=== PATIENT | female | born 1975 | race Caucasian/White ===

== ENCOUNTER 2021-02-19 07:29 | Emergency (ER) | payer OTHER ==
[~2021-02-19] VITALS: Ht 165.1 cm; Wt 89.8 kg
--- NOTE | ~2021-02-19 | EMS ---
[facility] [address] [place] [address] EMS Patient Care Report Name: AHSAN JUAREZ Room #: DEP BRIEN Gaviria#: [id number] Admission: 02/19/21 Attend Phys: Discharge: 02/19/21 Date of : [birth year] Report #: [id number] THIS REPORT FOR: //name// Report Transmitted: 02/20/2021 09:37 EMS Care Summary [place], [place]/[facility] Incident [id number] @ 02/19/2021 06:54 Incident Location [address] [place] [address] Patient AHSAN JUAREZ Female, 45 Years 1975 Patient Address [address] [place] [address] Patient History Seizures, Patient Allergies No known allergies, Patient Medications Levetiracetam, Chief Complaint ALOC Disposition Transported No Lights/[place] Dispatch Reason Sick Person Transported To [facility] Narrative Dispatched to an apartment community in regards to a seizure. Upon arrival, I saw patient laying supine in bed. Initial assessment revealed that patient was [facility] [address] [place] [address] EMS Patient Care Report Name: AHSAN JUAREZ Room #: DEP [place]#: [id number] Admission: 02/19/21 Attend Phys: Discharge: 02/19/21 Date of : 79 Report #: [id number] GCS14 and did not appear to be in respiratory distress. Patient's chief complaint was ALOC. Bystander stated that he witnessed the patient have a 6 minute seizure. Bystander also stated that patient has a history of seizures. Physical assessment revealed that patient was pink warm and dry. Patient was assisted to our cot outside the apartment. Patient was seated on the cot , secured and lifted into the ambulance. Treatment rendered was obtaining a complete set of baseline vital signs, including a blood glucose reading. Patient was transported to [facility] and radio report was given en route. Arrived at destination and patient care was transferred. Initial Vitals @07:17P: 72,R: 16,BP: 126/78,Pain: 0/10,GCS: 14,CO: 8,SpO2: 98,Revised Trauma: 12, @07:08P: 68,R: 16,BP: 118/77,Pain: 0/10,GCS: 14,Glucose: 147,SpO2: 84,Revised Trauma: 12, Assessments @07:21MENTAL:Person Oriented,SKIN:HEENT:Head/Face: No Abnormalities,Eyes: No Abnormalities,LUNG SOUNDS:ABDOMEN:PELVIS//GI:EXTREMITIES:PULSE:NEURO:No Abnormalities, Impression Altered Mental Status Procedures @07:21ALS AssessmentResponse: UnchangedSucceeded Timeline 06:52,Call Received 06:52,Dispatch Notified 06:54,Dispatched 06:58,En Route 07:05,On Scene 07:06,At Patient 07:08,BP: 118/77 M,PULSE: 68,RR: 16 R,SPO2: 84 Ox,ETCO2: ,B,PAIN: 0,GCS: 14, 07:17,BP: 126/78 M,PULSE: 72,RR: 16 R,SPO2: 98 Ox,ETCO2: ,BG: ,PAIN: 0,GCS: 14, 07:19,Depart Scene 07:21,ALS Assessment,Response: UnchangedSucceeded, 07:26,At Destination 07:40,Call Closed Disclaimer v1.1 Copyright 2020 [employer] This EMS Care Summary contains data elements from the applicable legal record (which may be displayed differently). It is designed to provide pertinent [facility] [address] [place] [address] EMS Patient Care Report Name: AHSAN JUAREZ [facility] [id number] Admission: 02/19/21 Attend Phys: Discharge: 02/19/21 Date of : 79 Report #: [id number] information for the following purposes: continuity of care, clinical quality, and state data reporting. The complete legal record is available to ED staff and administrators of the receiving hospital in [employer] Patient Tracker. All data is provided "as is."
[2021-02-19 07:57] LABS: ABSOLUTE NEUTROPHILS 3.4 thou/uL (1.4-8.2); BASOPHILS 0.1 % (0.0-2.0); EOSINOPHILS 1.1 % (0.0-3.0); HEMATOCRIT 39.8 % (37.0-47.0); LYMPHOCYTES 18.1 % (24.0-44.0); MCH 27.3 pg (26.0-34.0); MCHC 32.7 g/dL (28.0-37.0); MCV 83.4 fL (80.0-100.0); MONOCYTES 9.5 % (1.0-8.0); PLATELET COUNT 200 thou/uL (150-400); POLYS 71.2 % (36.0-66.0); RBC 4.77 mil/uL (4.20-5.00); WBC 4.8 thou/uL (4.0-11.0)
[2021-02-19 08:20] LABS: AMP/METHAMP Negative (Negative); BARBITURATES Negative (Negative); BENZODIAZEPINES Negative (Negative); COCAINE Negative (Negative); METHADONE Negative (Negative); OPIATES Negative (Negative); PCP Negative (Negative)
[2021-02-19 08:30] LABS: CREATININE 1.2 mg/dL (0.6-1.0); POTASSIUM 3.3 mmol/L (3.5-5.1)
[2021-02-19 08:32] LABS: URINE BILIRUBIN 1+ (Negative); URINE BLOOD 2+ (Negative); URINE CLARITY SL CLOUDY; URINE COLOR YELLOW; URINE GLUCOSE-RANDOM* NEGATIVE (Negative); URINE KETONES 1+ (Negative); URINE PROTEIN (DIPSTICK) 1+ (Negative); URINE SPECIFIC GRAVITY >= 1.030 (1.005-1.035); URINE UROBILINOGEN 0.2 E.U./dl (0.2-1.0)
[2021-02-19 08:37] LABS: ALBUMIN 3.6 g/dL (3.4-5.0); TOTAL BILIRUBIN 0.3 mg/dL (0.2-1.0); TOTAL PROTEIN 7.7 g/dL (6.4-8.2)
[2021-02-19 08:39] LABS: ICTOTEST (BILI CONFIRMATORY) Negative (Negative); URINE LEUKOCYTES-REFLEX 1+ (Negative); URINE NITRITE-REFLEX POSITIVE (Negative)
--- NOTE | 2021-02-19 09:11 | EKG ---
[place] [address] [address] [facility] [place] [address] ELECTROCARDIOGRAM REPORT Name: AHSAN JUAREZ Room #: REG BRIEN Gaviria#: [id number] Admission: 02/19/21 Attend Phys: Discharge: Date of : 79 Report #: [id number] [facility] ED Test Date: 2021-02-19 Test Time: 07:33:11 Pat Name: AHSAN JUAREZ Department: Room: Gender: F Urgent Care Physician: : 1975 Requested By: Tammy Moya Order Number: [id number] MD: Lorenzo Sanches Measurements Intervals [place] Rate: 71 P: 47 GA: 171 QRS: -8 QRSD: 109 T: 5 QT: 396 QTc: 431 Interpretive Statements Sinus rhythm Nonspecific ST segment abnormality No previous ECG available for comparison Electronically Signed On 02-19-2021 9:11:49 CDT by Lorenzo Sanches [email or web address] <ELECTRONICALLY SIGNED> By: Lorenzo Sanches MD, [facility] 02/19/21910 0733 0733 Lorenzo Sanches MD, FACC /EPI
[2021-02-19 09:13] LABS: CASTS None Seen /LPF (None Seen); SQUAMOUS 4-10 Moderate /LPF (0-3)
[2021-02-19 09:14] LABS: URINE WBC-REFLEX 6-15 Few /HPF (0-5)
[2021-02-19 09:16] LABS: YEAST-REFLEX Present (None Seen)
[2021-02-19 10:27] LABS: CRYSTALS None Seen /LPF (None Seen)
[2021-02-19] MEDS ORDERED: CEPHALEXIN500 MG PO (11:59)
[2021-02-19 12:00] VITALS: BP 124/83
== END 2021-02-19 12:00 | disposition home or self-care (01) ==
LOC: ER 07:29
PROVIDERS: Emergency Medicine
DX: R56.9 Unspecified convulsions (principal); N39.0 Urinary tract infection, site not specified